=== PATIENT | male | born 2000 | race Two or more races ===

== ENCOUNTER 2021-05-12 05:18 | Inpatient (IN) | payer MEDICAID ==
[~2021-05-12] VITALS: Ht 188 cm; Wt 136.5 kg
[2021-05-12] MEDS ORDERED: SODIUM CHLORIDE 0.9% 1,000 ML IV ONE ×3 (07:15→12:45)
[2021-05-12 08:21] LABS: Basophils # (auto) 0.1 10 ^3/uL (0-0.2); Basophils % (auto) 0.6 % (0.0-2.0); Eosinophils # (auto) 0 10 ^3/uL (0-0.8); Monocytes # (auto) 0.8 10 ^3/uL (0-1.3)
[2021-05-12 08:22] LABS: Eosinophils % (auto) 0.2 % (0.0-7.0); Lymphocytes # (auto) 1.2 10 ^3/uL (0.4-5.4); Lymphocytes % (auto) 8.9 % (10.0-50.0); Neutrophils # (auto) 11.8 10 ^3/uL (1.6-8.6); Neutrophils % (auto) 84.3 % (37.0-80.0); Nucleated Red Blood Cells % 0.2 %
[2021-05-12 08:32] LABS: Magnesium 1.9 mg/dL (1.6-2.6); Potassium 3.5 mmol/L (3.5-5.1)
[2021-05-12 08:45] LABS: Albumin 3.7 g/dL (3.4-5.0); BUN/Creatinine Ratio 18.3; Calcium 6.8 mg/dL (8.5-10.1); Total Protein 8.1 g/dL (6.4-8.2)
[2021-05-12] MEDS ORDERED: ONDANSETRON HCL 4 MG/2 ML VIAL IV ONE (08:45)
[2021-05-12] MEDS ORDERED: MORPHINE SULFATE 4 MG/ML SYR/VIAL IV ONE (08:45)
[2021-05-12 08:51] LABS: Lactic Acid w/Reflex 2.1 mmol/L (0.4-2.0)
[2021-05-12] MEDS ORDERED: PROCHLORPERAZINE EDISYLATE 5 MG/ML 2ML VIAL IV ONE (09:15)
[2021-05-12 09:33] LABS: Hematocrit 39.2 % (41.0-53.0); Hemoglobin 13.9 g/dL (13.5-17.5); Mean Corpuscular Hemoglobin 27.4 pg (28.0-32.0); Mean Corpuscular Hgb Conc. 35.5 g/dL (32.0-36.0)
[2021-05-12 11:08] LABS: Urine Bacteria NONE SEEN /hpf (None Seen); Urine Blood TRACE /uL (Negative); Urine Specific Gravity 1.044 (1.001-1.035); Urine WBC 1 /hpf (0 - 3)
[2021-05-12 11:17] LABS: Alcohol, Urine < 3.0 mg/dL (0-10); Amphetamine Screen, Urine NEGATIVE (NEGATIVE); Barbiturate Scree,Urine NEGATIVE (NEGATIVE); Benzodiazephine Screen, Urine NEGATIVE (NEGATIVE); Cannabinoid Screen, Urine NEGATIVE (NEGATIVE); Cocaine Screen, Urine NEGATIVE (NEGATIVE); Opiate Scree,Urine POSITIVE (NEGATIVE); Phencyclidine Screen, Urine NEGATIVE (NEGATIVE)
[2021-05-12] MEDS ORDERED: MORPHINE SULFATE INJECTION 2 MG/ML SYRG IV PRN (12:45)
[2021-05-12] MEDS ORDERED: cefTRIAXone 1GM/50ML D5W 50 ML IV ONE (12:45)
[2021-05-12] MEDS ORDERED: NITROGLYCERIN 0.4 MG SL TAB SL PRN (12:45)
[2021-05-12 17:00] VITALS: BP 126/61
[2021-05-12] MEDS ORDERED: ACETAMINOPHEN 650 MG RECT SUPP PR PRN (18:00)
[2021-05-12] MEDS: MORPHINE SULFATE INJECTION 2 MG/ML SYRG IV PRN ×2 (18:54→23:57)
[2021-05-12] MEDS: ONDANSETRON HCL 4 MG/2 ML VIAL IV PRN (18:54)
[2021-05-12] MEDS ORDERED: DEXTROSE (50%) 50ML SYRG IV PRN (21:15)
[2021-05-12 21:46] VITALS: BP 131/70
[2021-05-12] MEDS: ACCU-CHEK COMFORT CURVE STRIP VI SCH (23:57)
[2021-05-13] MEDS: InsuLIN REG 1unit/0.01ml Soln (100units/ml) SC SCH ×4 (00:20→18:22)
[2021-05-13] MEDS: MORPHINE SULFATE INJECTION 2 MG/ML SYRG IV PRN ×3 (04:15→15:35)
[2021-05-13] MEDS: ONDANSETRON HCL 4 MG/2 ML VIAL IV PRN ×2 (04:15→15:36)
[2021-05-13 05:00] VITALS: BP 130/83
[2021-05-13 05:47] LABS: Basophils # (auto) 0 10 ^3/uL (0-0.2); Basophils % (auto) 0.4 % (0.0-2.0); Eosinophils # (auto) 0 10 ^3/uL (0-0.8); Eosinophils % (auto) 0.1 % (0.0-7.0); Hematocrit 45.2 % (41.0-53.0); Hemoglobin 16.2 g/dL (13.5-17.5); Lymphocytes # (auto) 1.2 10 ^3/uL (0.4-5.4); Lymphocytes % (auto) 11.3 % (10.0-50.0); Mean Corpuscular Hemoglobin 28.5 pg (28.0-32.0); Mean Corpuscular Hgb Conc. 35.8 g/dL (32.0-36.0); Mean Corpuscular Volume 79.7 fL (80.0-100.0); Monocytes # (auto) 1.2 10 ^3/uL (0-1.3); Monocytes % (auto) 10.8 % (0.0-12.0); Neutrophils # (auto) 8.5 10 ^3/uL (1.6-8.6); Neutrophils % (auto) 77.4 % (37.0-80.0); Nucleated Red Blood Cells % 0.2 %; Red Blood Cells 5.67 10^6/uL (4.5-5.90); Red Cell Distribution Width 15.2 % (11.8-14.3); White Blood Cell 10.9 10^3/uL (4.4-10.8)
[2021-05-13 06:13] LABS: BUN/Creatinine Ratio 9.1
[2021-05-13] MEDS: ACCU-CHEK COMFORT CURVE STRIP VI SCH ×3 (06:13→17:45)
[2021-05-13 09:10] VITALS: BP 148/90
[2021-05-13] MEDS ORDERED: SODIUM CHLORIDE 0.9% 2,000 ML IV ONE (12:00)
[2021-05-13] MEDS ORDERED: HYDROcodone-ACET 5/325MG TAB PO PRN (12:00)
[2021-05-13] MEDS ORDERED: PANTOPRAZOLE 40 MG TAB PO SCH (12:30)
[2021-05-13 13:26] VITALS: BP 140/84
[2021-05-13] MEDS ORDERED: INSLISPI SC (13:55)
[2021-05-13] MEDS ORDERED: INSULIN LANTUS (GLARGINE) 1 /0.01ml (100units/ml) SC SCH (15:15)
[2021-05-13] MEDS ORDERED: OMEP-434 PO (15:33)
[2021-05-13] MEDS ORDERED: INSLANTI SC (15:33)
[2021-05-13] MEDS ORDERED: INSU100I2 SC (15:33)
[2021-05-13 16:02] VITALS: BP 116/93
[2021-05-13 17:15] VITALS: BP 131/76
== END 2021-05-13 20:11 | disposition home or self-care (01) | DRG 282 ==
LOC: ER 05:18 → OVERFLOW 12:45 → EAST 14:04 → TELE-EAST 21:11 → EAST 05-13 14:12
PROVIDERS: ADMIT Internal Medicine; ATTEND Internal Medicine
DX: K85.20 Alcohol induced acute pancreatitis without necrosis or infection (principal); E10.65 Type 1 diabetes mellitus with hyperglycemia; Z20.822 Contact with and (suspected) exposure to COVID-19; Z79.4 Long term (current) use of insulin; Z79.899 Other long term (current) drug therapy; Z91.14 Patient's other noncompliance with medication regimen; Z83.3 Family history of diabetes mellitus
CPT/HCPCS: 36415; 74176; 80048; 80053; 80307; 81001; 82150; 82962; 83036; 83605; 83690; 83735; 85025; 85049; 87040; 87426; 96361; 96365; 96375; G0378; J0696; J1815; J2405

== ENCOUNTER 2021-09-20 07:31 | Inpatient (IN) | payer MEDICAID ==
[~2021-09-20] VITALS: Ht 188 cm; Wt 140.0 kg
[~2021-09-20 07:31] MED LIST: INSLANTI SC; INSU100I2 SC; OMEP-434 PO
[2021-09-20 08:36] LABS: Potassium 3.8 mmol/L (3.5-5.1)
[2021-09-20 09:16] LABS: Hematocrit 46.9 % (41.0-53.0); Mean Corpuscular Hemoglobin 27.3 pg (28.0-32.0); Mean Corpuscular Hgb Conc. 34.1 g/dL (32.0-36.0); Mean Corpuscular Volume 80.1 fL (80.0-100.0); Red Blood Cells 5.86 10^6/uL (4.5-5.90); Red Cell Distribution Width 14.5 % (11.8-14.3); White Blood Cell 11.5 10^3/uL (4.4-10.8)
[2021-09-20 09:19] LABS: Basophils # (auto) 0.1 10 ^3/uL (0-0.2); Basophils % (auto) 0.5 % (0.0-2.0); Eosinophils # (auto) 0.1 10 ^3/uL (0-0.8); Eosinophils % (auto) 1.3 % (0.0-7.0); Lymphocytes # (auto) 2.3 10 ^3/uL (0.4-5.4); Lymphocytes % (auto) 19.1 % (10.0-50.0); Monocytes # (auto) 0.8 10 ^3/uL (0-1.3); Monocytes % (auto) 6.9 % (0.0-12.0); Neutrophils # (auto) 8.5 10 ^3/uL (1.6-8.6); Neutrophils % (auto) 72.2 % (37.0-80.0)
[2021-09-20 09:59] LABS: BUN/Creatinine Ratio 15.6
[2021-09-20 10:01] LABS: Albumin 3.6 g/dL (3.4-5.0); Bilirubin, Total 1.5 mg/dL (0.2-1.0); Total Protein 8.3 g/dL (6.4-8.2)
[2021-09-20 10:08] LABS: Calcium 5.3 mg/dL (8.5-10.1)
[2021-09-20] MEDS ORDERED: SODIUM CHLORIDE 0.9% 1,000 ML IV ONE ×2 (10:30)
[2021-09-20] MEDS ORDERED: InsuLIN REG 1unit/0.01ml Soln (100units/ml) IV ONE (10:30)
[2021-09-20] MEDS ORDERED: METOCLOPRAMIDE HCL 5MG/ml INJ 2ml VIAL IV ONE (10:30)
[2021-09-20] MEDS ORDERED: MORPHINE SULFATE 4 MG/ML SYR/VIAL IV ONE (10:30)
[2021-09-20 11:13] LABS: Amphetamine Screen, Urine NEGATIVE (NEGATIVE); Barbiturate Scree,Urine NEGATIVE (NEGATIVE); Benzodiazephine Screen, Urine NEGATIVE (NEGATIVE); Cannabinoid Screen, Urine NEGATIVE (NEGATIVE); Cocaine Screen, Urine NEGATIVE (NEGATIVE); Opiate Scree,Urine NEGATIVE (NEGATIVE); Phencyclidine Screen, Urine NEGATIVE (NEGATIVE)
[2021-09-20] MEDS ORDERED: CALCIUM GLUC 1,000mg/50ml-NS 50 ML IV ONE (11:15)
[2021-09-20 11:23] LABS: Urine Bacteria FEW /hpf (None Seen); Urine Blood Negative /uL (Negative); Urine Mucus FEW (None Seen); Urine Specific Gravity 1.047 (1.001-1.035); Urine WBC 1 /hpf (0 - 3)
[2021-09-20] MEDS: MORPHINE SULFATE INJECTION 2 MG/ML SYRG IV SCH ×2 (16:10→19:14)
[2021-09-20] MEDS: ONDANSETRON HCL 4 MG/2 ML VIAL IV PRN ×2 (16:11→19:16)
[2021-09-20] MEDS ORDERED: InsuLIN REG 1unit/0.01ml Soln (100units/ml) SC ONE (18:45)
[2021-09-20] MEDS: LACTATED RINGER'S 1,000 ML IV SCH (19:00)
[2021-09-20] MEDS: CALCIUM CARB 500 MG CHEW TAB PO SCH (19:14)
[2021-09-20] MEDS: ACCU-CHEK COMFORT CURVE STRIP VI SCH (19:15)
[2021-09-20 23:16] VITALS: BP 105/64
[2021-09-21] MEDS: MORPHINE SULFATE INJECTION 2 MG/ML SYRG IV SCH ×3 (00:38→06:00)
[2021-09-21] MEDS ORDERED: DEXTROSE (50%) 50ML SYRG IV PRN ×2 (01:00→07:45)
[2021-09-21] MEDS ORDERED: SODIUM CHLORIDE 0.9% 1,000 ML IV ONE (01:00)
[2021-09-21] MEDS ORDERED: InsuLIN REG 1unit/0.01ml Soln (100units/ml) IV ONE ×2 (01:15→20:30)
[2021-09-21] MEDS: LACTATED RINGER'S 1,000 ML IV SCH ×3 (01:40→14:24)
[2021-09-21 05:30] VITALS: BP 122/82
[2021-09-21] MEDS ORDERED: ACCU-CHEK COMFORT CURVE STRIP VI SCH (07:00)
[2021-09-21] MEDS ORDERED: InsuLIN REG 1unit/0.01ml Soln (100units/ml) SC SCH (07:00)
[2021-09-21 07:19] LABS: Basophils # (auto) 0 10 ^3/uL (0-0.2); Eosinophils # (auto) 0 10 ^3/uL (0-0.8); Hemoglobin 18.2 g/dL (13.5-17.5); Lymphocytes # (auto) 1.3 10 ^3/uL (0.4-5.4); Monocytes # (auto) 1.1 10 ^3/uL (0-1.3)
[2021-09-21 07:20] LABS: Basophils % (auto) 0.3 % (0.0-2.0); Eosinophils % (auto) 0.1 % (0.0-7.0); Hematocrit 53.6 % (41.0-53.0); Lymphocytes % (auto) 15.8 % (10.0-50.0); Mean Corpuscular Hemoglobin 27.8 pg (28.0-32.0); Mean Corpuscular Volume 81.9 fL (80.0-100.0); Monocytes % (auto) 13.2 % (0.0-12.0); Neutrophils # (auto) 5.9 10 ^3/uL (1.6-8.6); Neutrophils % (auto) 70.6 % (37.0-80.0); Nucleated Red Blood Cells % 0.5 %; Red Blood Cells 6.54 10^6/uL (4.5-5.90); Red Cell Distribution Width 14.8 % (11.8-14.3); White Blood Cell 8.3 10^3/uL (4.4-10.8)
[2021-09-21 07:21] LABS: Anion Gap 17 (5-15); Carbon Dioxide 12 mmol/L (21-32); Chloride 99 mmol/L (98-107); Lipase 593 U/L (73-393); Potassium 5.3 mmol/L (3.5-5.1); Sodium 128 mmol/L (136-145)
[2021-09-21 07:29] LABS: Alanine Aminotransferase 96 U/L (16-61); Aspartate Aminotransferase 36 U/L (15-37); GFR African American 104 mL/min; GFR Non-African American 86 mL/min; Total Protein 6.4 g/dL (6.4-8.2)
[2021-09-21 07:32] LABS: Albumin 2.8 g/dL (3.4-5.0); Alkaline Phosphatase 58 U/L (45-117); BUN/Creatinine Ratio 13.2; Bilirubin, Total 0.8 mg/dL (0.2-1.0); Blood Urea Nitrogen 15 mg/dL (7-18); Calcium 7.1 mg/dL (8.5-10.1); Cholesterol 242 mg/dL (< 200); HDL Cholesterol 21 mg/dL (40-59); Triglycerides 929 mg/dL (< 150)
[2021-09-21 07:35] LABS: Glucose 474 mg/dL (74-106)
[2021-09-21] MEDS: CALCIUM CARB 500 MG CHEW TAB PO SCH ×3 (07:36→17:33)
[2021-09-21] MEDS ORDERED: MORPHINE SULFATE INJECTION 2 MG/ML SYRG IV PRN (08:00)
[2021-09-21 08:40] VITALS: BP 128/102
[2021-09-21] MEDS ORDERED: INSULIN LANTUS (GLARGINE) 1 /0.01ml (100units/ml) SC SCH (10:00)
[2021-09-21] MEDS: CALCIUM W/VIT D (600MG/400IU) TAB PO SCH (10:07)
[2021-09-21] MEDS: ONDANSETRON HCL 4 MG/2 ML VIAL IV PRN ×2 (10:10→17:58)
[2021-09-21] MEDS: MORPHINE SULFATE INJECTION 2 MG/ML SYRG IV PRN ×2 (10:19→17:52)
[2021-09-21] MEDS: InsuLIN REG 1unit/0.01ml Soln (100units/ml) SC SCH ×3 (12:01→22:15)
[2021-09-21] MEDS: ACCU-CHEK COMFORT CURVE STRIP VI SCH ×4 (12:01→22:15)
[2021-09-21 13:00] VITALS: BP 122/81
[2021-09-21] MEDS ORDERED: SODIUM CHLORIDE 0.9% 1,000 ML IV SCH (16:00)
[2021-09-21] MEDS: SODIUM CHLORIDE 0.9% 1,000 ML IV SCH (18:15)
[2021-09-21 19:42] LABS: BUN/Creatinine Ratio 13.7; Calcium 8.6 mg/dL (8.5-10.1); Magnesium 2.4 mg/dL (1.6-2.6); Phosphorus 3.7 mg/dL (2.5-4.90)
[2021-09-21 20:04] LABS: Potassium 5.9 mmol/L (3.5-5.1)
[2021-09-21] MEDS ORDERED: SODIUM ZIRCONIUM CYCL 10 GM PAK PO ONE (20:30)
[2021-09-21] MEDS ORDERED: DEXTROSE (50%) 50ML SYRG IV ONE (20:30)
[2021-09-21] MEDS ORDERED: CALCIUM GLUC 1,000mg/50ml-NS 50 ML IV ONE (20:30)
[2021-09-21 22:00] VITALS: BP 119/72
[2021-09-21] MEDS: GEMFIBROZIL 600 MG TAB PO SCH (22:04)
[2021-09-21] MEDS: INSULIN LANTUS (GLARGINE) 1 /0.01ml (100units/ml) SC SCH (22:15)
[2021-09-22] MEDS: SODIUM CHLORIDE 0.9% 1,000 ML IV SCH ×2 (00:36→06:43)
[2021-09-22 01:10] LABS: BUN/Creatinine Ratio 15.8; Calcium 9.2 mg/dL (8.5-10.1); Potassium 4.2 mmol/L (3.5-5.1)
[2021-09-22 05:00] VITALS: BP 119/97
[2021-09-22] MEDS: ACCU-CHEK COMFORT CURVE STRIP VI SCH ×4 (06:43→22:42)
[2021-09-22] MEDS: InsuLIN REG 1unit/0.01ml Soln (100units/ml) SC SCH ×4 (06:44→22:55)
[2021-09-22 07:35] LABS: Calcium 8.8 mg/dL (8.5-10.1); Potassium 4.3 mmol/L (3.5-5.1)
[2021-09-22 07:38] LABS: BUN/Creatinine Ratio 20.5
[2021-09-22] MEDS: CALCIUM CARB 500 MG CHEW TAB PO SCH ×3 (08:12→17:52)
[2021-09-22 08:15] VITALS: BP 157/95
[2021-09-22] MEDS: CALCIUM W/VIT D (600MG/400IU) TAB PO SCH (10:42)
[2021-09-22] MEDS: GEMFIBROZIL 600 MG TAB PO SCH ×2 (10:42→22:55)
[2021-09-22] MEDS: FAMOTIDINE (10MG/ML) 2ML VL IV SCH (10:42)
[2021-09-22] MEDS: INSULIN LANTUS (GLARGINE) 1 /0.01ml (100units/ml) SC SCH ×2 (10:43→22:55)
[2021-09-22 13:05] VITALS: BP 131/63
[2021-09-22 17:19] VITALS: BP 123/70
[2021-09-22 20:18] LABS: Urine Bacteria NONE SEEN /hpf (None Seen); Urine Blood Negative /uL (Negative); Urine Specific Gravity 1.013 (1.001-1.035); Urine WBC 1 /hpf (0 - 3)
[2021-09-22 20:23] LABS: Protein, Urine 57.7 mg/dL (0.0-11.9)
[2021-09-22 22:00] VITALS: BP 127/71
[2021-09-23 05:00] VITALS: BP 147/77
[2021-09-23 05:50] LABS: Albumin 2.4 g/dL (3.4-5.0); BUN/Creatinine Ratio 18.6; Calcium 9.3 mg/dL (8.5-10.1); Potassium 4.1 mmol/L (3.5-5.1)
[2021-09-23 05:53] LABS: Bilirubin, Total 0.6 mg/dL (0.2-1.0); Total Protein 6.2 g/dL (6.4-8.2)
[2021-09-23] MEDS: InsuLIN REG 1unit/0.01ml Soln (100units/ml) SC SCH ×3 (06:42→17:05)
[2021-09-23] MEDS: ACCU-CHEK COMFORT CURVE STRIP VI SCH ×3 (06:42→16:55)
[2021-09-23 08:00] VITALS: BP 135/77
[2021-09-23] MEDS: CALCIUM CARB 500 MG CHEW TAB PO SCH ×3 (08:00→16:55)
[2021-09-23 09:30] VITALS: BP 135/71
[2021-09-23] MEDS: GEMFIBROZIL 600 MG TAB PO SCH (10:16)
[2021-09-23] MEDS: FAMOTIDINE (10MG/ML) 2ML VL IV SCH (10:16)
[2021-09-23] MEDS: CALCIUM W/VIT D (600MG/400IU) TAB PO SCH (10:16)
[2021-09-23] MEDS: INSULIN LANTUS (GLARGINE) 1 /0.01ml (100units/ml) SC SCH (10:17)
[2021-09-23 11:01] LABS: Hepatitis B Surface Antibody Negative
[2021-09-23 11:39] LABS: Hepatitis A Total Antibody Positive
[2021-09-23] MEDS ORDERED: INSLANTI SC (14:31)
[2021-09-23] MEDS ORDERED: LANC-347 XX (14:31)
[2021-09-23] MEDS ORDERED: INSU100I2 SC (14:31)
[2021-09-23] MEDS ORDERED: SYRI25MI4 XX (14:31)
[2021-09-23] MEDS ORDERED: GEMF-19 PO (14:31)
[2021-09-23] MEDS ORDERED: BLOO1KIT60 XX (14:31)
[2021-09-23 15:13] LABS: Hepatitis C Antibody Negative (Negative)
[2021-09-23 15:33] VITALS: BP 140/91
[2021-09-23 16:26] VITALS: BP 147/82
[2021-09-23 17:06] VITALS: BP 147/82
== END 2021-09-23 17:10 | disposition home or self-care (01) | DRG 282 ==
LOC: ER 07:31 → OVERFLOW 13:08 → CENTRAL 23:01 → TELE-CENTR 09-21 01:12
PROVIDERS: ADMIT Hospitalist; ATTEND Hospitalist
DX: K85.90 Acute pancreatitis without necrosis or infection, unspecified (principal); N17.0 Acute kidney failure with tubular necrosis; E11.65 Type 2 diabetes mellitus with hyperglycemia; E88.89 Other specified metabolic disorders; R16.2 Hepatomegaly with splenomegaly, not elsewhere classified; K76.0 Fatty (change of) liver, not elsewhere classified; N18.2 Chronic kidney disease, stage 2 (mild); E87.5 Hyperkalemia; E66.01 Morbid (severe) obesity due to excess calories; E11.22 Type 2 diabetes mellitus with diabetic chronic kidney disease; E78.1 Pure hyperglyceridemia; E78.5 Hyperlipidemia, unspecified; F17.210 Nicotine dependence, cigarettes, uncomplicated; R79.89 Other specified abnormal findings of blood chemistry; I48.91 Unspecified atrial fibrillation; F41.9 Anxiety disorder, unspecified; K86.1 Other chronic pancreatitis; Z79.4 Long term (current) use of insulin; Z91.14 Patient's other noncompliance with medication regimen; Z83.3 Family history of diabetes mellitus; Z68.39 Body mass index [BMI] 39.0-39.9, adult; Z20.822 Contact with and (suspected) exposure to COVID-19
CPT/HCPCS: 36415; 74176; 76705; 80048; 80053; 80061; 80307; 80320; 81001; 82570; 82962; 83036; 83690; 83735; 83880; 84100; 84156; 84300; 84550; 85025; 86704; 86706; 86708; 86803; 87340; 87426; 96361; 96365; 96372; 96375; G0378; J1815; J2405; J3490

== ENCOUNTER 2022-02-03 11:09 | Inpatient (IN) | payer BC, MEDICAID ==
[~2022-02-03] VITALS: Ht 188 cm; Wt 134.1 kg
[~2022-02-03 11:09] MED LIST changes: +BLOO1KIT60 XX; +GEMF-19 PO; +LANC-347 XX; +SYRI25MI4 XX
[2022-02-03 14:33] LABS: Urine Bacteria NONE SEEN /hpf (None Seen); Urine Blood Negative /uL (Negative); Urine Mucus FEW (None Seen); Urine Specific Gravity 1.031 (1.001-1.035); Urine WBC <1 /hpf (0 - 3)
[2022-02-03 15:27] LABS: BUN/Creatinine Ratio 15.5; Bilirubin, Total 0.3 mg/dL (0.2-1.0); Calcium 8.8 mg/dL (8.5-10.1)
[2022-02-03 15:28] LABS: Albumin 3.9 g/dL (3.4-5.0); Total Protein 8.2 g/dL (6.4-8.2)
[2022-02-03] MEDS: SODIUM CHLORIDE 0.9% 1,000 ML IV ONE ×2 (15:30→17:30)
[2022-02-03] MEDS ORDERED: SODIUM CHLORIDE 0.9% 1,000 ML IV ONE (16:15)
[2022-02-03] MEDS ORDERED: KETOROLAC TROMETH 30 MG/ML 1ML VIAL IV ONE (16:15)
[2022-02-03 18:06] LABS: Hematocrit 41.5 % (41.0-53.0); Hemoglobin 14.7 g/dL (13.5-17.5); Mean Corpuscular Hgb Conc. 35.5 g/dL (32.0-36.0); Mean Corpuscular Volume 78.8 fL (80.0-100.0); Red Blood Cells 5.27 10^6/uL (4.5-5.90); Red Cell Distribution Width 14.3 % (11.8-14.3)
[2022-02-03 18:12] LABS: White Blood Cell 11.1 10^3/uL (4.4-10.8)
[2022-02-03 18:13] LABS: Lymphocytes % (auto) 26.5 % (10.0-50.0); Neutrophils % (auto) 64.8 % (37.0-80.0)
[2022-02-03 18:14] LABS: Basophils % (auto) 0.9 % (0.0-2.0); Eosinophils # (auto) 0.3 10 ^3/uL (0-0.8); Eosinophils % (auto) 2.5 % (0.0-7.0); Lymphocytes # (auto) 2.9 10 ^3/uL (0.4-5.4); Monocytes # (auto) 5.5 10 ^3/uL (0-1.3); Monocytes % (auto) 5.5 % (0.0-12.0); Neutrophils # (auto) 7.2 10 ^3/uL (1.6-8.6)
[2022-02-03 18:15] LABS: Basophils # (auto) 0.1 10 ^3/uL (0-0.2)
[2022-02-03 21:47] LABS: Alcohol, Urine < 3.0 mg/dL (0-10); Amphetamine Screen, Urine NEGATIVE (NEGATIVE); Barbiturate Scree,Urine NEGATIVE (NEGATIVE); Benzodiazephine Screen, Urine NEGATIVE (NEGATIVE); Cannabinoid Screen, Urine NEGATIVE (NEGATIVE); Cocaine Screen, Urine NEGATIVE (NEGATIVE); Opiate Scree,Urine NEGATIVE (NEGATIVE); Phencyclidine Screen, Urine NEGATIVE (NEGATIVE)
[2022-02-03] MEDS ORDERED: HYDROmorphone HCL 2 MG/ML VL IV ONE (23:15)
[2022-02-03] MEDS ORDERED: ONDANSETRON HCL 4 MG/2 ML VIAL IV ONE (23:15)
[2022-02-04] MEDS ORDERED: HYDROmorphone HCL 2 MG/ML VL IV ONE (01:30)
[2022-02-04] MEDS ORDERED: ONDANSETRON HCL 4 MG/2 ML VIAL ONE (01:57)
[2022-02-04] MEDS ORDERED: ONDANSETRON HCL 4 MG/2 ML VIAL IV ONE (02:05)
[2022-02-04] MEDS ORDERED: SODIUM CHLORIDE 0.9% 1,000 ML IV ONE (02:30)
[2022-02-04] MEDS ORDERED: ONDANSETRON HCL 4 MG/2 ML VIAL IV PRN (05:00)
[2022-02-04] MEDS ORDERED: DEXTROSE (50%) 50ML SYRG IV PRN (05:00)
[2022-02-04] MEDS ORDERED: SODIUM CHLORIDE 0.9% 1,000 ML IV SCH (05:00)
[2022-02-04] MEDS ORDERED: MORPHINE SULFATE 4 MG/ML SYR/VIAL IV PRN (05:00)
[2022-02-04] MEDS: ACCU-CHEK COMFORT CURVE STRIP VI SCH ×3 (06:02→17:36)
[2022-02-04] MEDS: InsuLIN REG 1unit/0.01ml Soln (100units/ml) SC SCH ×3 (06:04→17:35)
[2022-02-04 06:57] LABS: Calcium 8.3 mg/dL (8.5-10.1); Potassium 4.4 mmol/L (3.5-5.1)
[2022-02-04 07:24] LABS: Albumin 3.5 g/dL (3.4-5.0)
[2022-02-04 07:30] LABS: Bilirubin, Total 0.6 mg/dL (0.2-1.0)
[2022-02-04 07:56] LABS: BUN/Creatinine Ratio 5.1
[2022-02-04 07:57] LABS: Total Protein 8.1 g/dL (6.4-8.2)
[2022-02-04 08:53] LABS: Hematocrit 46.6 % (41.0-53.0); Hemoglobin 16.8 g/dL (13.5-17.5); Mean Corpuscular Hemoglobin 28.7 pg (28.0-32.0); Mean Corpuscular Volume 79.7 fL (80.0-100.0); Red Blood Cells 5.85 10^6/uL (4.5-5.90); Red Cell Distribution Width 14.5 % (11.8-14.3); White Blood Cell 13.1 10^3/uL (4.4-10.8)
[2022-02-04 08:57] LABS: Basophils % (manual) 0 (0.0-2.0); Blast Cells 0; Eosinophils % (manual) 0 (0-7); Metamyelocytes % 0; Myelocytes % 0; Promyelocytes % 0; Reactive Lymphocytes 0
[2022-02-04 09:00] VITALS: BP 137/73
[2022-02-04 09:03] LABS: Band Neutrophils % (manual) 6; Lymphocytes % (manual) 10 (10.0-50.0); Monocytes % (manual) 16 (0-12)
[2022-02-04 09:15] VITALS: BP 140/67
[2022-02-04] MEDS ORDERED: PANTOPRAZOLE 40 MG/10 ML VIAL INJ IV SCH (10:00)
[2022-02-04] MEDS ORDERED: LACTATED RINGER'S 2,000 ML IV ONE (10:45)
[2022-02-04] MEDS ORDERED: LACTATED RINGER'S 1,000 ML IV SCH (11:00)
[2022-02-04] MEDS ORDERED: ACETAMINOPHEN 325 MG TAB PO PRN (11:00)
[2022-02-04] MEDS ORDERED: INSU100I49 SC (11:54)
[2022-02-04] MEDS ORDERED: LEVEMIR SC (11:54)
[2022-02-04] MEDS: INSULIN LANTUS (GLARGINE) 1 /0.01ml (100units/ml) SC SCH ×2 (12:29→22:30)
[2022-02-04] MEDS: oxyCODONE HCL 5MG TAB PO PRN (12:35)
[2022-02-04 13:00] VITALS: BP 140/67
[2022-02-04 16:28] LABS: BUN/Creatinine Ratio 5.2; Calcium 8.8 mg/dL (8.5-10.1); Potassium 4.8 mmol/L (3.5-5.1)
[2022-02-04 16:56] VITALS: BP 133/77
[2022-02-04] MEDS ORDERED: InsuLIN REG 1unit/0.01ml Soln (100units/ml) SC ONE (17:00)
[2022-02-04] MEDS: LACTATED RINGER'S 1,000 ML IV SCH (17:38)
[2022-02-04 22:00] VITALS: BP 130/75
[2022-02-05] MEDS: InsuLIN REG 1unit/0.01ml Soln (100units/ml) SC SCH ×2 (00:43→06:46)
[2022-02-05] MEDS: LACTATED RINGER'S 1,000 ML IV SCH ×3 (01:15→21:45)
[2022-02-05] MEDS: oxyCODONE HCL 5MG TAB PO PRN (01:16)
[2022-02-05 05:00] VITALS: BP 135/75
[2022-02-05] MEDS: ACCU-CHEK COMFORT CURVE STRIP VI SCH ×5 (06:00→22:00)
[2022-02-05 06:41] LABS: Basophils # (auto) 0.1 10 ^3/uL (0-0.2); Basophils % (auto) 0.6 % (0.0-2.0); Eosinophils # (auto) 0.1 10 ^3/uL (0-0.8); Eosinophils % (auto) 0.9 % (0.0-7.0); Hematocrit 38.7 % (41.0-53.0); Hemoglobin 13.6 g/dL (13.5-17.5); Lymphocytes # (auto) 1.4 10 ^3/uL (0.4-5.4); Lymphocytes % (auto) 17.4 % (10.0-50.0); Mean Corpuscular Hemoglobin 27.4 pg (28.0-32.0); Mean Corpuscular Hgb Conc. 35.2 g/dL (32.0-36.0); Mean Corpuscular Volume 77.9 fL (80.0-100.0); Neutrophils # (auto) 5.7 10 ^3/uL (1.6-8.6); Neutrophils % (auto) 69.1 % (37.0-80.0); Nucleated Red Blood Cells % 0.3 %; Red Blood Cells 4.97 10^6/uL (4.5-5.90); Red Cell Distribution Width 14.3 % (11.8-14.3); White Blood Cell 8.2 10^3/uL (4.4-10.8)
[2022-02-05] MEDS: INSULIN LANTUS (GLARGINE) 1 /0.01ml (100units/ml) SC SCH ×2 (06:47→22:00)
[2022-02-05 06:57] LABS: Chloride 104 mmol/L (98-107); Sodium 134 mmol/L (136-145)
[2022-02-05 07:13] LABS: Alanine Aminotransferase 33 U/L (16-61); Albumin 2.8 g/dL (3.4-5.0); Alkaline Phosphatase 56 U/L (45-117); Anion Gap 7 (5-15); Aspartate Aminotransferase 16 U/L (15-37); BUN/Creatinine Ratio 5.4; Bilirubin, Total 0.7 mg/dL (0.2-1.0); Blood Urea Nitrogen 4 mg/dL (7-18); Calcium 9.5 mg/dL (8.5-10.1); Carbon Dioxide 23 mmol/L (21-32); Cholesterol 249 mg/dL (< 200); GFR African American 172 mL/min; GFR Non-African American 142 mL/min; Glucose 233 mg/dL (74-106); HDL Cholesterol 22 mg/dL (40-59); Magnesium 2.1 mg/dL (1.6-2.6); Total Protein 7.1 g/dL (6.4-8.2); Triglycerides 643 mg/dL (< 150)
[2022-02-05] MEDS ORDERED: DEXTROSE (50%) 50ML SYRG IV PRN (09:15)
[2022-02-05] MEDS ORDERED: INSULIN LANTUS (GLARGINE) 1 /0.01ml (100units/ml) SC SCH (09:15)
[2022-02-05 09:21] VITALS: BP 129/72
[2022-02-05] MEDS: ENOXAPARIN SOD 40 MG/0.4 ML SYRINGE SC SCH (09:49)
[2022-02-05] MEDS: INSULIN LISPRO (HUMAN) 100 UNITS/ML ML SC SCH ×2 (12:32→18:19)
[2022-02-05 13:04] VITALS: BP 118/66
[2022-02-05 16:52] VITALS: BP 73/66
[2022-02-05 22:00] VITALS: BP 138/80
[2022-02-05] MEDS ORDERED: InsuLIN REG 1unit/0.01ml Soln (100units/ml) SC SCH (22:00)
[2022-02-05] MEDS: GEMFIBROZIL 600 MG TAB PO SCH (22:00)
[2022-02-06 05:00] VITALS: BP 123/72
[2022-02-06] MEDS: INSULIN LISPRO (HUMAN) 100 UNITS/ML ML SC SCH ×2 (06:07→12:37)
[2022-02-06] MEDS: INSULIN LANTUS (GLARGINE) 1 /0.01ml (100units/ml) SC SCH (06:18)
[2022-02-06 06:21] LABS: Albumin 2.6 g/dL (3.4-5.0); Calcium 9.1 mg/dL (8.5-10.1); Potassium 3.1 mmol/L (3.5-5.1)
[2022-02-06] MEDS: ACCU-CHEK COMFORT CURVE STRIP VI SCH ×3 (06:23→12:28)
[2022-02-06 06:25] LABS: BUN/Creatinine Ratio 11.5; Bilirubin, Total 0.5 mg/dL (0.2-1.0)
[2022-02-06 08:49] VITALS: BP 120/71
[2022-02-06] MEDS ORDERED: INSULIN LANTUS (GLARGINE) 1 /0.01ml (100units/ml) SC ONE (09:00)
[2022-02-06] MEDS ORDERED: POTASSIUM CHL 20 Meq TABLET PO SCH (10:00)
[2022-02-06] MEDS ORDERED: PANTOPRAZOLE 40 MG TAB PO SCH (10:00)
[2022-02-06] MEDS: GEMFIBROZIL 600 MG TAB PO SCH (10:21)
[2022-02-06] MEDS: ENOXAPARIN SOD 40 MG/0.4 ML SYRINGE SC SCH (10:22)
[2022-02-06] MEDS ORDERED: INSLANTI SC (12:05)
[2022-02-06] MEDS ORDERED: POTA-220 PO (12:05)
[2022-02-06 13:00] VITALS: BP 132/66
[2022-02-06] MEDS ORDERED: INSULIN LANTUS (GLARGINE) 1 /0.01ml (100units/ml) SC SCH (22:00)
== END 2022-02-06 16:43 | disposition home or self-care (01) | DRG 438 ==
LOC: ER 11:09 → OVERFLOW 02-04 04:56 → WEST WING 02-04 09:05 → TELE-WESTW 02-04 10:45
PROVIDERS: ADMIT Nurse Practitioner; ATTEND Hospitalist
DX: K85.90 Acute pancreatitis without necrosis or infection, unspecified (principal); E11.10 Type 2 diabetes mellitus with ketoacidosis without coma; E86.0 Dehydration; E11.65 Type 2 diabetes mellitus with hyperglycemia; Z20.822 Contact with and (suspected) exposure to COVID-19; E78.1 Pure hyperglyceridemia; E87.6 Hypokalemia; F17.200 Nicotine dependence, unspecified, uncomplicated; E66.8 Other obesity; K76.0 Fatty (change of) liver, not elsewhere classified; Z79.4 Long term (current) use of insulin; Z83.3 Family history of diabetes mellitus; Z91.11 Patient's noncompliance with dietary regimen; Z91.14 Patient's other noncompliance with medication regimen; Z68.37 Body mass index [BMI] 37.0-37.9, adult
CPT/HCPCS: 36415; 74176; 80048; 80053; 80061; 80307; 81001; 82962; 83036; 83690; 83735; 85007; 85025; 85027; 93005; 96361; 96374; 96375; 96376; C9113; G0378; J1815; J1885; J2405

== ENCOUNTER 2022-03-26 12:12 | Emergency (ER) | payer BC, MEDICAID ==
[~2022-03-26] VITALS: Ht 188 cm; Wt 136.1 kg
[~2022-03-26 12:12] MED LIST changes: +INSU100I49 SC; +LEVEMIR SC; +POTA-220 PO
[2022-03-26 12:45] VITALS: BP 135/80
== END 2022-03-26 15:58 | disposition left against medical advice (07) ==
LOC: ER 12:12
DX: R10.10 Upper abdominal pain, unspecified (principal); Z53.21 Procedure and treatment not carried out due to patient leaving prior to being seen by health care provider

== ENCOUNTER 2022-12-01 12:01 | Emergency (ER) | payer BC, MEDICAID ==
[~2022-12-01] VITALS: Ht 188 cm; Wt 132.3 kg
[2022-12-01] MEDS ORDERED: PANT40TA2 PO (12:28)
[2022-12-01 13:14] LABS: Urine Bacteria NONE SEEN /hpf (None Seen); Urine Blood Negative /uL (Negative); Urine Hyaline Cast FEW /lpf (0 - 2); Urine Mucus FEW (None Seen); Urine Specific Gravity 1.039 (1.001-1.035); Urine WBC 4 /hpf (0 - 3)
[2022-12-01 13:30] LABS: Basophils # (auto) 0 10 ^3/uL (0-0.2); Hemoglobin 14.7 g/dL (13.5-17.5); Lymphocytes # (auto) 2.3 10 ^3/uL (0.4-5.4); Monocytes # (auto) 0.6 10 ^3/uL (0-1.3); Nucleated Red Blood Cells % 0.1 %; Red Cell Distribution Width 17.9 % (11.8-14.3)
[2022-12-01 13:32] LABS: Basophils % (auto) 0.3 % (0.0-2.0); Eosinophils # (auto) 0.2 10 ^3/uL (0-0.8); Hematocrit 45.7 % (41.0-53.0); Lymphocytes % (auto) 28.8 % (10.0-50.0); Mean Corpuscular Hemoglobin 23.8 pg (28.0-32.0); Mean Corpuscular Hgb Conc. 32.2 g/dL (32.0-36.0); Mean Corpuscular Volume 73.8 fL (80.0-100.0); Monocytes % (auto) 7.8 % (0.0-12.0); Neutrophils # (auto) 4.9 10 ^3/uL (1.6-8.6); Neutrophils % (auto) 60.1 % (37.0-80.0); Red Blood Cells 6.19 10^6/uL (4.5-5.90); White Blood Cell 8.1 10^3/uL (4.4-10.8)
[2022-12-01 14:08] LABS: Albumin 3.4 g/dL (3.4-5.0); Potassium 4.3 mmol/L (3.5-5.1)
[2022-12-01 14:12] LABS: BUN/Creatinine Ratio 31.6; Calcium 9.5 mg/dL (8.5-10.1)
[2022-12-01 14:15] LABS: Bilirubin, Total 0.3 mg/dL (0.2-1.0); Total Protein 7.2 g/dL (6.4-8.2)
[2022-12-01 14:20] VITALS: BP 130/87
[2022-12-01] MEDS ORDERED: cefTRIAXone SOD 1,000 MG VL IM ONE (17:00)
[2022-12-01] MEDS ORDERED: ONDANSETRON HCL 4 MG/2 ML VIAL IV ONE (17:45)
[2022-12-01] MEDS ORDERED: MORPHINE SULFATE 4 MG/ML SYR/VIAL IV ONE (17:45)
== END 2022-12-01 19:02 | disposition home or self-care (01) ==
LOC: ER 12:01
DX: K86.1 Other chronic pancreatitis (principal); E11.9 Type 2 diabetes mellitus without complications
CPT/HCPCS: 36415; 74176; 80053; 81001; 83690; 85025